=== PATIENT | female | born 1970 | race Two or more races ===

== ENCOUNTER 2017-11-10 12:59 | Emergency (ER) | payer OTHER ==
[~2017-11-10] VITALS: Ht 157.5 cm; Wt 62.6 kg
[2017-11-10 13:25] VITALS: BP 120/71
[2017-11-10] MEDS ORDERED: NEOMYCIN-BACITRACIN-POLYM UNITDOSE PKG TOP OINT TOP ONE ×2 (14:05→14:15)
[2017-11-10] MEDS ORDERED: TETANUS-DIPTH-ACEL PERTUSSIS 0.5ML SYRG IM ONE (14:15)
== END 2017-11-10 14:34 | disposition home or self-care (01) ==
LOC: ER 13:13
DX: S61.300A Unspecified open wound of right index finger with damage to nail, initial encounter (principal); W26.9XXA Contact with unspecified sharp object(s), initial encounter; Y93.89 Activity, other specified; Y99.8 Other external cause status; Y92.89 Other specified places as the place of occurrence of the external cause
CPT/HCPCS: 90471; 90715